=== PATIENT | female | born 1925 | race Caucasian/White ===

== ENCOUNTER 2016-12-06 03:01 | Inpatient (IN) | payer OTHER ==
[~2016-12-06] VITALS: Ht 157.5 cm; Wt 50.4 kg
[~2016-12-06 03:01] MED LIST: ADULT LOW DOSE81 M1 PO; ASPIR-LOW81 MG PO; ATENOLOL50 M1 PO; ATENOLOL50 MG PO; Ativan PO; B-1100 MG PO; B-121000 MC2 PO; CALCITRIOL0.25 MCG PO; CEFTRIAXONE1 G1 IM; DIOVAN320 MG PO; DOXYCYCLINE HY100 MG PO; EXFORGE 5/321 TABLET PO; EXFORGE PO; HYDROCHLOROTHIA25 MG PO; Hydrodiuril,Oretic,E PO; IRON PO; LEVETIRACETAM250 MG PO; LOPERAMIDE2 MG PO; LORAZEPAM0.5 MG PO; LOW DOSE ASPIRI81 M1 PO; NABI650T PO; Niferex-150,Ferrex 1 PO; OMEPRAZOLE20 M1 PO; OMEPRAZOLE20 MG PO; PANTOPRAZOLE SO40 MG PO; PAROXETINE HCL20 MG PO; PERCOCET 5/31 TABLET PO; PRAVACHOL40 MG PO; PRAVASTATIN SOD40 MG PO; PRAVASTATIN SOD80 MG PO; PRILOSEC20 MG PO; Pravachol PO; PriLOSEC PO; QUESTRAN PACKET4 GM PO; SEROQUEL12.5 MG PO; SULFAMETHOXAZO1 EACH PO; Tenormin PO; VALSARTAN160 MG PO; VITAMIN D2000 UNIT PO; WELCHOL625 MG PO
[2016-12-06 03:54] LABS: EOSINOPHIL (%) 1.3 % (0-5); HEMATOCRIT 28.7 % (36.0-46.0); IMMATURE GRANULOCYTE (%) 0.9 % (0.0-0.7); INSTRUMENT ABS NEUTROPHIL CT 1.7 K/uL; LYMPHOCYTE COUNT 0.3 K/uL (1.0-2.8); MCH 30.3 PG (29.0-34.0); MCHC 32.8 G/DL (30.0-36.0); MCV 92.6 FL (83-99); MEAN PLAT.VOLUME 8.2 uM^3 (9.5-12.4); MONOCYTE (%) 7.6 % (3-12); MONOCYTE COUNT 0.2 K/uL (0-0.8); NEUTROPHIL (%) 76.9 % (45-76); NEUTROPHIL COUNT 1.7 K/uL (1.8-6.4); PLATELET COUNT 129 K/uL (156-360); RBC DIS.WIDTH-CV 13.8 % (11.8-14.6); RBC DIS.WIDTH-SD 46.9 % (39-53)
[2016-12-06 03:56] LABS: WHITE BLOOD COUNT 2.2 K/uL (4.1-10.2)
[2016-12-06 04:10] LABS: CHLORIDE 110 mEq/L (99-109); POTASSIUM 5.2 mEq/L (3.7-5.4); SODIUM 140 mEq/L (136-147)
[2016-12-06 04:12] LABS: GLUCOSE 133 mg/dL (70-99)
[2016-12-06 04:13] LABS: ANION GAP 8 MEQ/L (2-14)
[2016-12-06 04:16] LABS: GFR ESTIMATE (CALCULATED) 28 mL/min/
[2016-12-06 04:17] LABS: UREA NITROGEN (BUN) 32 mg/dL (9-23)
[2016-12-06 04:18] LABS: CREATINE KINASE 39 IU/L (1-294)
[2016-12-06 04:23] LABS: TROP-I INTERPRETATION NEGATIVE; TROPONIN-I 0.01 ng/mL (0.0-0.30)
[2016-12-06 08:00] VITALS: BP 142/78
[2016-12-06 08:02] VITALS: BP 142/78
[2016-12-06 12:00] VITALS: BP 144/70
[2016-12-06] MEDS ORDERED: IRON325 M1 PO (14:10)
[2016-12-06 15:28] VITALS: BP 140/65
[2016-12-06 16:17] LABS: PROLACTIN 50.4 NG/ML
[2016-12-06 19:50] VITALS: BP 118/59
[2016-12-07 00:13] VITALS: BP 148/78
[2016-12-07 04:01] VITALS: BP 150/72
[2016-12-07 09:00] VITALS: BP 114/63
[2016-12-07 12:00] VITALS: BP 132/69
[2016-12-07 17:54] VITALS: BP 140/67
[2016-12-07 19:14] VITALS: BP 123/58
[2016-12-08] VITALS (7 sets, daily range): BP systolic 128–194; BP diastolic 70–96
[2016-12-08 05:55] LABS: EOSINOPHIL (%) 3.4 % (0-5); EOSINOPHIL COUNT 0.1 K/uL (0-0.3); HEMATOCRIT 27.7 % (36.0-46.0); INSTRUMENT ABS NEUTROPHIL CT 1.1 K/uL; LYMPHOCYTE COUNT 1.1 K/uL (1.0-2.8); MCH 31.3 PG (29.0-34.0); MCHC 33.6 G/DL (30.0-36.0); MCV 93.3 FL (83-99); MEAN PLAT.VOLUME 8.7 uM^3 (9.5-12.4); MONOCYTE (%) 11.4 % (3-12); MONOCYTE COUNT 0.3 K/uL (0-0.8); NEUTROPHIL (%) 43.1 % (45-76); NEUTROPHIL COUNT 1.1 K/uL (1.8-6.4); PLATELET COUNT 131 K/uL (156-360); RBC DIS.WIDTH-CV 13.5 % (11.8-14.6); RBC DIS.WIDTH-SD 46.3 % (39-53); RED BLOOD COUNT 2.97 M/uL (3.80-5.20); WHITE BLOOD COUNT 2.6 K/uL (4.1-10.2)
[2016-12-08 06:14] LABS: ALKALINE PHOSPHATASE 60 IU/L (3-129); ANION GAP 7 MEQ/L (2-14); CHLORIDE 108 MEQ/L (99-109); GFR ESTIMATE (CALCULATED) 25 mL/min/; GLUCOSE 102 mg/dL (70-99); POTASSIUM 4.6 MEQ/L (3.7-5.4); SAMPLE HEMOLYSIS CHECK 1; SAMPLE ICTERIC CHECK 0; SAMPLE LIPEMIA CHECK 0; SODIUM 138 MEQ/L (136-147); TOTAL BILIRUBIN 0.5 MG/DL (0.0-1.0); UREA NITROGEN (BUN) 30 mg/dL (9-23)
[2016-12-09 00:36] VITALS: BP 175/79
[2016-12-09 03:48] VITALS: BP 174/84
[2016-12-09 07:21] VITALS: BP 152/72
[2016-12-09 17:34] VITALS: BP 124/62
[2016-12-09 20:00] VITALS: BP 117/57
[2016-12-09 23:55] VITALS: BP 98/57
[2016-12-10 04:00] VITALS: BP 110/64
[2016-12-10 08:12] VITALS: BP 101/57
== END 2016-12-10 12:40 | disposition home or self-care (01) | DRG 100 ==
LOC: EME 03:01 → 4EAST 04:45 → EDOF 04:45 → 4EAST 07:17
PROVIDERS: Emergency Medicine; Family Medicine
DX: G40.409 Other generalized epilepsy and epileptic syndromes, not intractable, without status epilepticus (principal); G93.40 Encephalopathy, unspecified; N18.4 Chronic kidney disease, stage 4 (severe); D70.9 Neutropenia, unspecified; D64.9 Anemia, unspecified; K22.0 Achalasia of cardia; I35.0 Nonrheumatic aortic (valve) stenosis; R09.02 Hypoxemia; Z85.038 Personal history of other malignant neoplasm of large intestine; Z93.3 Colostomy status; I25.10 Atherosclerotic heart disease of native coronary artery without angina pectoris; R13.10 Dysphagia, unspecified; F42.8 Other obsessive-compulsive disorder; H91.90 Unspecified hearing loss, unspecified ear; K21.9 Gastro-esophageal reflux disease without esophagitis; D72.819 Decreased white blood cell count, unspecified; I12.9 Hypertensive chronic kidney disease with stage 1 through stage 4 chronic kidney disease, or unspecified chronic kidney disease; E78.5 Hyperlipidemia, unspecified
CPT/HCPCS: 70450; 71020; 74220; 80048; 80053; 82550; 84146; 84484; 85025; 92526 GN; 92610 GN; 93005; 95819; 99281; 99285; J1953; J2060; J2405; J2765; J7030; J7050

== ENCOUNTER 2016-12-29 18:01 | Emergency (ER) | payer OTHER ==
[~2016-12-29] VITALS: Ht 160 cm; Wt 52.7 kg
[~2016-12-29 18:01] MED LIST changes: +IRON325 M1 PO
[2016-12-29 18:47] LABS: EOSINOPHIL (%) 1.4 % (0-5); HEMATOCRIT 34.9 % (36.0-46.0); IMMATURE GRANULOCYTE (%) 0.4 % (0.0-0.7); LYMPHOCYTE COUNT 0.6 K/uL (1.0-2.8); MCH 30.2 PG (29.0-34.0); MCHC 33.5 G/DL (30.0-36.0); MCV 90.2 FL (83-99); MEAN PLAT.VOLUME 8.2 uM^3 (9.5-12.4); MONOCYTE (%) 6.7 % (3-12); MONOCYTE COUNT 0.2 K/uL (0-0.8); NEUTROPHIL (%) 70.4 % (45-76); PLATELET COUNT 133 K/uL (156-360); RBC DIS.WIDTH-CV 13.2 % (11.8-14.6); RBC DIS.WIDTH-SD 43.6 % (39-53); WHITE BLOOD COUNT 2.8 K/uL (4.1-10.2)
[2016-12-29 18:49] LABS: RED BLOOD COUNT 3.87 M/uL (3.80-5.20)
[2016-12-29 18:52] LABS: CHLORIDE 109 mEq/L (99-109); POTASSIUM 5.7 mEq/L (3.7-5.4); SODIUM 137 mEq/L (136-147)
[2016-12-29 18:53] LABS: MAGNESIUM 1.8 mg/dL (1.3-2.7)
[2016-12-29 18:54] LABS: GLUCOSE 119 mg/dL (70-99)
[2016-12-29 18:56] LABS: ANION GAP 8 MEQ/L (2-14); TOTAL BILIRUBIN 0.3 mg/dL (0.0-1.0)
[2016-12-29 18:58] LABS: ALKALINE PHOSPHATASE 90 IU/L (3-129); GFR ESTIMATE (CALCULATED) 30 mL/min/
[2016-12-29 18:59] LABS: UREA NITROGEN (BUN) 26 mg/dL (9-23)
[2016-12-29 19:00] LABS: DIRECT BILIRUBIN 0.2 mg/dL (0.0-0.3)
[2016-12-29 19:03] LABS: TROP-I INTERPRETATION NEGATIVE; TROPONIN-I < 0.01 ng/mL (0.0-0.30)
[2016-12-29 20:01] LABS: LIPASE 10 U/L (1.0-51.0)
[2016-12-29 23:24] VITALS: BP 178/91
== END 2016-12-29 23:25 | disposition home or self-care (01) ==
LOC: EME 18:01
PROVIDERS: Emergency Medicine
DX: R53.1 Weakness (principal); R11.0 Nausea; E87.5 Hyperkalemia; N18.9 Chronic kidney disease, unspecified; D61.818 Other pancytopenia; E78.5 Hyperlipidemia, unspecified; I10 Essential (primary) hypertension; K21.9 Gastro-esophageal reflux disease without esophagitis; G40.909 Epilepsy, unspecified, not intractable, without status epilepticus
CPT/HCPCS: 70450; 71010; 80048; 80076; 81003; 83690; 83735; 84484; 85025; 93005; 99281; 99285; J7040

== ENCOUNTER 2017-02-03 14:05 | Emergency (ER) | payer OTHER ==
[~2017-02-03] VITALS: Ht 157.5 cm; Wt 48.1 kg
[2017-02-03 16:04] LABS: CHLORIDE 116 mEq/L (99-109); SODIUM 135 mEq/L (136-147)
[2017-02-03 16:05] LABS: GLUCOSE 105 mg/dL (70-99)
[2017-02-03 16:07] LABS: ANION GAP 7 MEQ/L (2-14)
[2017-02-03 16:09] LABS: GFR ESTIMATE (CALCULATED) 17 mL/min/
[2017-02-03 16:10] LABS: UREA NITROGEN (BUN) 62 mg/dL (9-23)
[2017-02-03 16:12] LABS: LIPASE 37 U/L (1.0-51.0)
[2017-02-03 16:16] LABS: POTASSIUM 6.1 mEq/L (3.7-5.4)
[2017-02-03 16:18] LABS: EOSINOPHIL (%) 2.8 % (0-5); EOSINOPHIL COUNT 0.1 K/uL (0-0.3); HEMATOCRIT 33.2 % (36.0-46.0); IMMATURE GRANULOCYTE (%) 0.5 % (0.0-0.7); INSTRUMENT ABS NEUTROPHIL CT 2.8 K/uL; LYMPHOCYTE COUNT 0.7 K/uL (1.0-2.8); MCH 29.4 PG (29.0-34.0); MCHC 32.2 G/DL (30.0-36.0); MCV 91.2 FL (83-99); MEAN PLAT.VOLUME 9.1 uM^3 (9.5-12.4); MONOCYTE (%) 6.9 % (3-12); MONOCYTE COUNT 0.3 K/uL (0-0.8); NEUTROPHIL (%) 72.1 % (45-76); NEUTROPHIL COUNT 2.8 K/uL (1.8-6.4); PLATELET COUNT 134 K/uL (156-360); RBC DIS.WIDTH-CV 14.1 % (11.8-14.6); RBC DIS.WIDTH-SD 47.5 % (39-53); RED BLOOD COUNT 3.64 M/uL (3.80-5.20); WHITE BLOOD COUNT 3.9 K/uL (4.1-10.2)
[2017-02-03 17:10] VITALS: BP 105/62
== END 2017-02-03 17:10 | disposition home or self-care (01) ==
LOC: EME 14:05
PROVIDERS: Emergency Medicine
DX: R62.7 Adult failure to thrive (principal); E87.2 Acidosis; E86.0 Dehydration; F03.90 Unspecified dementia, unspecified severity, without behavioral disturbance, psychotic disturbance, mood disturbance, and anxiety; Z86.73 Personal history of transient ischemic attack (TIA), and cerebral infarction without residual deficits; Z85.038 Personal history of other malignant neoplasm of large intestine; Z93.3 Colostomy status; E78.5 Hyperlipidemia, unspecified
CPT/HCPCS: 80048; 81003; 83690; 85025; 85025 GA; 99281; 99284